=== PATIENT | male | born 1935 | race Caucasian/White ===

== ENCOUNTER 2016-09-30 16:19 | Emergency (ER) | payer MEDICARE, BC ==
[2016-09-30] MEDS ORDERED: NAMENDA5 M1 PO (16:21)
[2016-09-30] MEDS ORDERED: PROTONIX40 M2 PO (16:21)
[2016-09-30] MEDS ORDERED: NORVASC5 M2 PO (16:21)
[2016-09-30] MEDS ORDERED: ARICEPT10 M2 PO (16:21)
[2016-09-30] MEDS ORDERED: CLOPIDOGREL75 M1 PO (16:22)
[2016-09-30] MEDS ORDERED: LIPITOR40 M1 PO (16:23)
[2016-09-30] MEDS ORDERED: RANEXA500 M1 PO (16:23)
[2016-09-30] MEDS ORDERED: COQ1050 MG (16:39)
[2016-09-30 17:04] LABS: BASO % 0.2 % (0-2); EOS % 1.6 % (0-7); EOSINOPHIL ABSOLUTE COUNT 0.1 tho/cmm (0.0-0.7); HCT-HEMATOCRIT 39.9 % (36.0-53.5); HGB-HEMOGLOBIN 13.7 gm/dl (13.5-17.0); IMMATURE GRANULOCYTES ABSOLUTE 0.01 tho/cmm (0-0.03); IMMATURE GRANULOCYTES PERCENT 0.2 % (0-0.3); LYMPH % 22.6 % (20-45); MCH (MEAN CORPUSCULAR HGB) 30.9 pg (28.0-32.0); MCHC MEAN CORPUSCULAR HGB CONC 34.3 % (32.0-36.0); MCV (MEAN CELL VOLUME) 90.1 fl (82.0-96.0); MONO % 9.4 % (0-12); MONOCYTE ABSOLUTE COUNT 0.4 tho/cmm (0.0-1.2); NEUTROPHIL ABSOLUTE COUNT 2.9 tho/cmm (1.6-8.0); NEUTROPHIL-AUTOMATED 2.9 tho/cmm (1.6-8.0); PLATELET COUNT 162 tho/cmm (150-450); RED BLOOD COUNT 4.43 mil/cmm (4.40-5.70); WHITE BLOOD COUNT 4.3 tho/cmm (4.0-10.0)
[2016-09-30 17:09] LABS: PROTHROMBIN TIME 11.5 SECONDS (9.0-13.6)
[2016-09-30 17:20] LABS: ANION GAP 12 mmol/L (0-20); BLOOD UREA NITROGEN 21 mg/dl (6-24); CALCIUM 9.2 mg/dl (8.5-10.5); CARBON DIOXIDE-VENOUS 25 mmol/L (22-32); CHLORIDE 110 mmol/l (96-110); CREATININE 1.57 mg/dl (0.60-1.30); GLUCOSE 115 mg/dL (70-110); POTASSIUM 3.8 mmol/L (3.7-5.1); SODIUM 143 mmol/L (135-145); eGFR VALUE FOR BLACK 48 mL/Min
[2016-09-30] MEDS ORDERED: ELIQUIS2.5 M1 PO (18:23)
== END 2016-09-30 18:43 ==
LOC: EDMED 16:19
PROVIDERS: Emergency Medicine
DX: I48.91 Unspecified atrial fibrillation (principal); I12.9 Hypertensive chronic kidney disease with stage 1 through stage 4 chronic kidney disease, or unspecified chronic kidney disease; N18.9 Chronic kidney disease, unspecified; I25.10 Atherosclerotic heart disease of native coronary artery without angina pectoris; Z95.5 Presence of coronary angioplasty implant and graft; Z79.82 Long term (current) use of aspirin; Z79.899 Other long term (current) drug therapy